=== PATIENT | female | born 1965 | race Caucasian/White ===

== ENCOUNTER 2019-03-29 01:27 | Emergency (ER) | payer SELFPAY ==
[~2019-03-29] VITALS: Ht 162.6 cm; Wt 58.2 kg
[2019-03-29 01:55] LABS: GLUCOSE,POINT OF CARE 227 MG/DL (70-110)
[2019-03-29] MEDS ORDERED: METF-960 PO (03:11)
[2019-03-29] MEDS ORDERED: UNKOWN HTN MED PO (03:11)
[2019-03-29 03:34] LABS: BASOPHILS % (AUTO) 0.4 % (0.0-2.0); EOSINOPHILS % (AUTO) 1.7 % (1.0-6.0); HEMATOCRIT 38.1 % (36-46); HEMOGLOBIN 12.2 g/dL (12.0-16.0); LYMPHOCYTES # (AUTO) 2.3 K/uL (1.0-4.8); LYMPHOCYTES % (AUTO) 29.8 % (22.0-44.0); MEAN CORPUSCULAR HEMOGLOBIN 26.3 pg (26.0-34.0); MEAN CORPUSCULAR VOLUME 82 fL (80-100); MONOCYTES # (AUTO) 0.4 K/uL (0.1-1.0); MONOCYTES % (AUTO) 5.6 % (2.0-9.0); NEUTROPHILS # (AUTO) 4.9 K/uL (1.8-7.7); NEUTROPHILS % (AUTO) 62.5 % (40.0-70.0); PLATELET COUNT (AUTO) 372 K/uL (150-450); RED BLOOD CELL COUNT(AUTO) 4.63 MIL/uL (4.00-5.20); RED CELL DISTRIBUTION WIDTH 14.5 % (11.5-14.5)
[2019-03-29 03:43] LABS: CALCIUM, TOTAL 9.9 mg/dL (8.8-10.5); POTASSIUM 3.8 mmol/L (3.5-5.1)
[2019-03-29 03:49] LABS: ALBUMIN 3.8 g/dL (3.4-5.0); BILIRUBIN,TOTAL 0.3 mg/dL (0.1-1.0); TOTAL PROTEIN, SERUM 8.1 g/dL (6.4-8.2)
[2019-03-29] MEDS ORDERED: IBUPROFEN 600 MG TABLET PO ONE (05:15)
[2019-03-29 08:30] VITALS: BP 153/78
== END 2019-03-29 08:36 | disposition home or self-care (01) ==
LOC: EMS 01:29
DX: R07.89 Other chest pain (principal); I10 Essential (primary) hypertension; E11.9 Type 2 diabetes mellitus without complications
CPT/HCPCS: 93005